=== PATIENT | male | born 1990 | race Caucasian/White ===

== ENCOUNTER 2018-09-17 11:04 | Emergency (ER) | payer MEDICAID ==
[~2018-09-17] VITALS: Ht 180.3 cm; Wt 77.1 kg
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
--- NOTE | 2018-09-17 12:05 | NUR ---
PT TRANSFERRED VIA WHEEL CHAIR FOT CT
--- NOTE | 2018-09-17 13:05 | NUR ---
Patient discharged to home in stable condition. Written and verbal after care instructions given. Patient verbalizes understanding of instruction.
[2018-09-17 13:06] VITALS: BP 129/80
== END 2018-09-17 13:07 | disposition home or self-care (01) ==
LOC: ER 11:06
DX: S02.40FA Zygomatic fracture, left side, initial encounter for closed fracture (principal); S09.8XXA Other specified injuries of head, initial encounter; Z88.0 Allergy status to penicillin; W26.8XXA Contact with other sharp object(s), not elsewhere classified, initial encounter; Y93.89 Activity, other specified; Y92.89 Other specified places as the place of occurrence of the external cause; Y99.8 Other external cause status
CPT/HCPCS: 70486; 99284; A4606; Z7610